=== PATIENT | male | born 1960 ===

== ENCOUNTER → 2018-09-09 21:43 | Outpatient (REF) | payer OTHER, SELFPAY ==
[2018-09-09 22:31] LABS: Add Manual Diff / Slide Review NO; Basophils Percent Auto 0.7 % (0-2); Eosinophils Percent Auto 7.5 % (2-4); Hematocrit 47.8 % (41-53); Lymphocytes Percent Auto 33.8 % (25-40); Mean Corpuscular HGB Conc 33.4 % (30-36); Mean Corpuscular Hemoglobin 33.3 PG (26-34); Mean Corpuscular Volume 99.7 fL (80-100); Neutrophils Absolute Auto 2800 /uL (1500-7000); Platelet Count 209 X10^3/uL (150-400); Red Blood Cell Count 4.79 X10^6/uL (4.5-5.9); White Blood Cell Count 6.3 X10^3/uL (4.5-11.0)
[2018-09-10 07:11] LABS: Blood Urea Nitrogen 21 mg/dL (9-20); Carbon Dioxide 30 mmol/L (22-32); Chloride 104 mmol/L (98-107); Estimated Glomerular Filt Rate > 60.0 mL/min (>60); Glucose 65 mg/dL (70-100); HEMOLYSIS < 15 (0-50); Sodium 145 mmol/L (137-145)
[2018-09-10 07:35] LABS: Free T3, Triiodothyronine Free 5.11 pg/mL (2.77-5.27); T4 Total Thyroxine 5.88 ug/dL (5.5-11.0)
[2018-09-10 07:43] LABS: Prostate Specific Antigen 0.755 ng/mL (0.10-4.00)
[2018-09-10 07:48] LABS: Thyroid Stimulating Hormone 2.02 uIU/mL (0.47-4.68)
== END ==
LOC: LAB 21:43
PROVIDERS: Visit Provider Naturopath
DX: Z00.00 Encounter for general adult medical examination without abnormal findings (principal); L93.0 Discoid lupus erythematosus; E03.9 Hypothyroidism, unspecified; J44.9 Chronic obstructive pulmonary disease, unspecified; G47.9 Sleep disorder, unspecified
CPT/HCPCS: 36415; 80048; 84153; 84436; 84443; 84481; 85025